=== PATIENT | female | born 1990 | race African-American/Black ===

== ENCOUNTER 2017-01-20 10:33 | Emergency (ER) | payer MEDICAID ==
[~2017-01-20] VITALS: Ht 147.3 cm; Wt 77.2 kg
[~2017-01-20 10:33] MED LIST: AMOXICILLIN500 M1 PO; AMOXICILLIN500 MG PO; LORTAB 5/500 501 TAB PO; NO HOME MEDICATIONS; PRENATAL1 TA1; PRENATAL1 TA1 PO; SPRINTEC 35 MCG1 TAB PO; TYLENOL 325MG325 MG PO
[2017-01-20 10:45] VITALS: BP 140/89; PULSE 75; TEMP 98.8
[2017-01-20 11:27] LABS: PH 7 (5-8); URINE APPEARANCE Hazy; URINE BACTERIA Many /hpf; URINE BILIRUBIN Negative (NEGATIVE); URINE BLOOD Negative (NEGATIVE); URINE COLOR Yellow; URINE GLUCOSE Negative (NEGATIVE); URINE KETONE Negative (NEGATIVE); URINE UROBILINOGEN Negative (NEGATIVE)
== END 2017-01-20 11:46 | disposition home or self-care (01) ==
LOC: COL.ER 10:33
PROVIDERS: Physician Assistant
DX: J02.9 Acute pharyngitis, unspecified (principal); N39.0 Urinary tract infection, site not specified; F17.210 Nicotine dependence, cigarettes, uncomplicated

== ENCOUNTER 2017-04-23 22:53 | Emergency (ER) | payer MEDICAID ==
[~2017-04-23] VITALS: Ht 147.3 cm; Wt 77.0 kg
[2017-04-23 23:00] VITALS: TEMP 98.5
[2017-04-23 23:41] LABS: COLLECTION METHOD CLEAN CATCH
[2017-04-23 23:48] LABS: MUCOUS Present /lpf; PH 6 (5-8); URINE APPEARANCE Cloudy; URINE BACTERIA Many /hpf; URINE BILIRUBIN Negative (NEGATIVE); URINE BLOOD Negative (NEGATIVE); URINE COLOR Yellow; URINE GLUCOSE Negative (NEGATIVE); URINE KETONE Negative (NEGATIVE); URINE LEUKOCYTE ESTERASE 3+ (NEGATIVE); URINE PROTEIN(semi-quant) Negative (NEGATIVE); URINE UROBILINOGEN Negative (NEGATIVE)
[2017-04-23] MEDS ORDERED: AMOXICILLIN 50500 MG PO (23:57)
[2017-04-24 00:41] VITALS: BP 148/75; PULSE 78
[2017-04-24 01:32] LABS: CHLAMYDIA/TRACH by PCR Female NOT DETECTED; NEISSERIA GON by PCR Female NOT DETECTED
== END 2017-04-24 00:41 | disposition home or self-care (01) ==
LOC: COL.ER 22:53
PROVIDERS: Physician Assistant
DX: A59.9 Trichomoniasis, unspecified (principal); K08.89 Other specified disorders of teeth and supporting structures; F17.210 Nicotine dependence, cigarettes, uncomplicated; Z98.818 Other dental procedure status
CPT/HCPCS: J0696

== ENCOUNTER 2017-07-17 09:21 | Emergency (ER) | payer MEDICAID ==
[~2017-07-17] VITALS: Ht 147.3 cm; Wt 77.3 kg
[~2017-07-17 09:21] MED LIST changes: +AMOXICILLIN 50500 MG PO
[2017-07-17 09:38] VITALS: BP 167/99; PULSE 90; TEMP 96.8
== END 2017-07-17 12:45 | disposition left against medical advice (07) ==
LOC: COL.ER 09:21
DX: N89.8 Other specified noninflammatory disorders of vagina (principal)

== ENCOUNTER 2017-07-20 22:10 | Emergency (ER) | payer MEDICAID ==
[~2017-07-20] VITALS: Ht 147.3 cm; Wt 77.7 kg
[2017-07-20 23:13] LABS: COLLECTION METHOD CLEAN CATCH
[2017-07-20 23:22] LABS: MUCOUS Present /lpf; PH 5 (5-8); URINE APPEARANCE Cloudy; URINE BACTERIA Rare /hpf; URINE BILIRUBIN Negative (NEGATIVE); URINE BLOOD Negative (NEGATIVE); URINE COLOR Yellow; URINE GLUCOSE Negative (NEGATIVE); URINE KETONE Negative (NEGATIVE); URINE LEUKOCYTE ESTERASE 3+ (NEGATIVE); URINE NITRATE Negative (NEGATIVE); URINE PROTEIN(semi-quant) Negative (NEGATIVE); URINE UROBILINOGEN Negative (NEGATIVE)
[2017-07-21] MEDS ORDERED: FLAGYL 375375 MG PO (00:23)
[2017-07-21 01:00] VITALS: BP 141/103; PULSE 55
== END 2017-07-21 01:00 | disposition home or self-care (01) ==
LOC: COL.ER 22:10
PROVIDERS: Family Medicine
DX: N76.0 Acute vaginitis (principal)
CPT/HCPCS: J0696

== ENCOUNTER 2018-01-01 12:17 | Emergency (ER) | payer MEDICAID ==
[~2018-01-01] VITALS: Ht 149.9 cm; Wt 75.7 kg
[~2018-01-01 12:17] MED LIST changes: +FLAGYL 375375 MG PO
[2018-01-01 12:32] VITALS: BP 128/78
[2018-01-01 12:43] LABS: COLLECTION METHOD CLEAN CATCH
[2018-01-01 12:57] LABS: MUCOUS Present /lpf; PH 6 (5-8); SQUAMOUS EPITHELIAL 20-50 /hpf; URINE APPEARANCE Turbid; URINE BACTERIA Occasional /hpf; URINE BILIRUBIN Negative (NEGATIVE); URINE BLOOD 1+ (NEGATIVE); URINE COLOR Amber; URINE GLUCOSE Negative (NEGATIVE); URINE KETONE Negative (NEGATIVE); URINE LEUKOCYTE ESTERASE 2+ (NEGATIVE); URINE NITRATE Negative (NEGATIVE); URINE PROTEIN(semi-quant) 2+ (NEGATIVE); URINE RBC >50 /hpf; URINE UROBILINOGEN >=4.0 mg/dL (NEGATIVE)
[2018-01-01 13:32] VITALS: TEMP 99.1
[2018-01-01 13:51] LABS: BASO % 0.2 % (0.0-2.0); EOS % 0.3 % (0-4.0); GRAN # 8.9 (1.4-6.5); GRAN % 79.9 % (42.2-75.2); HEMATOCRIT 42.1 % (37.0-47.0); HEMOGLOBIN 14.1 g/dl (12.5-16.0); LYMPH % 8.9 % (20.0-51.0); MEAN CELL VOLUME 88 fl (80.0-100.0); MEAN CORPUSCULAR HEMOGLOBIN 30 pg (27.0-31.0); MEAN CORPUSCULAR HGB CONC 34 g/dl (33.0-37.0); MEAN PLATELET VOLUME 11.1 fl (7.4-10.4); MONO # 1.2 (0.1-0.6); MONO % 10.3 % (1.7-9.3); PLATELET COUNT 186 K/mm3 (130-400); RED BLOOD COUNT 4.77 M/mm3 (4.10-5.30); REDCELL DISTRIBUTION WIDTH-CV 13.3 % (11.5-14.5)
[2018-01-01 14:02] LABS: ALBUMIN 4.1 gm/dL (3.5-5.0); BILIRUBIN,TOTAL 0.8 mg/dL (0.0-1.0); C-REACTIVE PROTEIN 5.8 mg/dL (0.0-0.9); CREATININE, serum 0.67 mg/dL (0.52-1.25); POTASSIUM 3.3 mmol/L (3.4-5.0); TOTAL PROTEIN 7.4 gm/dL (6.4-8.2)
[2018-01-01] MEDS ORDERED: CEFTIN 250250 MG/TAB PO (15:05)
[2018-01-01 15:21] VITALS: PULSE 86
== END 2018-01-01 15:22 | disposition home or self-care (01) ==
LOC: COL.ER 12:17
PROVIDERS: Emergency Medicine; Physician Assistant
DX: N12 Tubulo-interstitial nephritis, not specified as acute or chronic (principal); F17.210 Nicotine dependence, cigarettes, uncomplicated
CPT/HCPCS: J0696; J1885; J2405; J7030

== ENCOUNTER 2018-01-02 17:45 | Inpatient (IN) | payer MEDICAID ==
[~2018-01-02] VITALS: Ht 149.9 cm; Wt 76.4 kg
[~2018-01-02 17:45] MED LIST changes: +CEFTIN 250250 MG/TAB PO
[2018-01-02 19:14] LABS: COLLECTION METHOD CLEAN CATCH
[2018-01-02 19:18] LABS: BASO % 0.1 % (0.0-2.0); EOS % 0.1 % (0-4.0); GRAN # 9.7 (1.4-6.5); GRAN % 76.9 % (42.2-75.2); HEMATOCRIT 37.3 % (37.0-47.0); HEMOGLOBIN 12.6 g/dl (12.5-16.0); LYMPH # 1.2 (1.2-3.4); LYMPH % 9.4 % (20.0-51.0); MEAN CELL VOLUME 87 fl (80.0-100.0); MEAN CORPUSCULAR HEMOGLOBIN 29 pg (27.0-31.0); MEAN CORPUSCULAR HGB CONC 34 g/dl (33.0-37.0); MEAN PLATELET VOLUME 11.2 fl (7.4-10.4); MONO # 1.7 (0.1-0.6); MONO % 13.1 % (1.7-9.3); PLATELET COUNT 165 K/mm3 (130-400); RED BLOOD COUNT 4.29 M/mm3 (4.10-5.30); REDCELL DISTRIBUTION WIDTH-CV 13.4 % (11.5-14.5)
[2018-01-02 19:28] LABS: ALBUMIN 3.5 gm/dL (3.5-5.0); BILIRUBIN,TOTAL 0.8 mg/dL (0.0-1.0); CALCIUM 8.6 mg/dL (8.4-10.2); CREATININE, serum 0.61 mg/dL (0.52-1.25); POTASSIUM 3.6 mmol/L (3.4-5.0); TOTAL PROTEIN 6.5 gm/dL (6.4-8.2)
[2018-01-02 19:32] LABS: MUCOUS Present /lpf; PH 7 (5-8); SQUAMOUS EPITHELIAL 20-50 /hpf; URINE APPEARANCE Cloudy; URINE BACTERIA Rare /hpf; URINE BILIRUBIN Negative (NEGATIVE); URINE BLOOD Negative (NEGATIVE); URINE COLOR Amber; URINE GLUCOSE Negative (NEGATIVE); URINE KETONE Negative (NEGATIVE); URINE LEUKOCYTE ESTERASE Trace (NEGATIVE); URINE NITRATE Negative (NEGATIVE); URINE PROTEIN(semi-quant) 1+ (NEGATIVE); URINE UROBILINOGEN >=4.0 mg/dL (NEGATIVE)
[2018-01-03] VITALS (7 sets, daily range): BP systolic 110–139; BP diastolic 67–85; PULSE 65–92; TEMP 97.9–99.3
[2018-01-03 09:09] LABS: HEMOGLOBIN 10.8 g/dl (12.5-16.0); MEAN CELL VOLUME 90 fl (80.0-100.0); MEAN CORPUSCULAR HEMOGLOBIN 30 pg (27.0-31.0); MEAN CORPUSCULAR HGB CONC 33 g/dl (33.0-37.0); MEAN PLATELET VOLUME 11.9 fl (7.4-10.4); PLATELET COUNT 164 K/mm3 (130-400); RED BLOOD COUNT 3.63 M/mm3 (4.10-5.30); REDCELL DISTRIBUTION WIDTH-CV 13.5 % (11.5-14.5)
[2018-01-03 09:15] LABS: CALCIUM 7.8 mg/dL (8.4-10.2); CREATININE, serum 0.49 mg/dL (0.52-1.25); POTASSIUM 3.6 mmol/L (3.4-5.0)
[2018-01-03 09:16] LABS: HEMATOCRIT 32.6 % (37.0-47.0)
[2018-01-03 09:50] LABS: BAND 25 % (0-10); LYMPHOCYTE 14 % (20.0-51.0); NEUTROPHILS 45 % (42.0-75.2)
[2018-01-03 09:53] LABS: PLATELET ESTIMATE NORMAL (NORMAL)
[2018-01-03 09:54] LABS: HYPOCHROMIA 1+
[2018-01-04 04:01] VITALS: BP 137/86; PULSE 69; TEMP 98.3
[2018-01-04 06:56] LABS: BASO % 0.3 % (0.0-2.0); EOS # 0.1 (0.0-0.7); EOS % 1.4 % (0-4.0); GRAN # 4.6 (1.4-6.5); HEMOGLOBIN 10.8 g/dl (12.5-16.0); LYMPH # 1.9 (1.2-3.4); LYMPH % 24.5 % (20.0-51.0); MEAN CELL VOLUME 87 fl (80.0-100.0); MEAN CORPUSCULAR HEMOGLOBIN 29 pg (27.0-31.0); MEAN CORPUSCULAR HGB CONC 34 g/dl (33.0-37.0); MEAN PLATELET VOLUME 11.9 fl (7.4-10.4); MONO % 12.5 % (1.7-9.3); PLATELET COUNT 163 K/mm3 (130-400); RED BLOOD COUNT 3.68 M/mm3 (4.10-5.30); REDCELL DISTRIBUTION WIDTH-CV 13.2 % (11.5-14.5)
[2018-01-04 07:14] LABS: CREATININE, serum 0.45 mg/dL (0.52-1.25)
[2018-01-04 07:29] LABS: POTASSIUM 3.3 mmol/L (3.4-5.0)
[2018-01-04] MEDS ORDERED: LEVAQUIN 750MG750 M1 PO (08:07)
[2018-01-04 08:55] VITALS: BP 119/67; PULSE 76; TEMP 97.9
== END 2018-01-04 10:15 | disposition home or self-care (01) | DRG 690 ==
LOC: COL.ER 17:45 → MEDICAL 21:44
PROVIDERS: Hospitalist; Nurse Practitioner; Nurse Practitioner Primary Care
DX: N10 Acute pyelonephritis (principal); Z87.891 Personal history of nicotine dependence
CPT/HCPCS: 99238; G0378; J1650; J1885; J1956; J2270; J7030; Q9967

== ENCOUNTER 2018-03-16 13:06 | Emergency (ER) | payer MEDICAID ==
[~2018-03-16] VITALS: Ht 147.3 cm; Wt 76.4 kg
[~2018-03-16 13:06] MED LIST changes: +LEVAQUIN 750MG750 M1 PO
[2018-03-16 13:13] VITALS: BP 139/94; TEMP 98.4
[2018-03-16 13:26] LABS: COLLECTION METHOD CLEAN CATCH
[2018-03-16 13:38] LABS: MUCOUS Present /lpf; PH 7 (5-8); URINE APPEARANCE Hazy; URINE BACTERIA Rare /hpf; URINE BILIRUBIN Negative (NEGATIVE); URINE BLOOD 3+ (NEGATIVE); URINE COLOR Yellow; URINE GLUCOSE Negative (NEGATIVE); URINE KETONE Negative (NEGATIVE); URINE LEUKOCYTE ESTERASE 2+ (NEGATIVE); URINE NITRATE Negative (NEGATIVE); URINE PROTEIN(semi-quant) Negative (NEGATIVE); URINE RBC >50 /hpf; URINE UROBILINOGEN Negative (NEGATIVE)
[2018-03-16] MEDS ORDERED: MACROBID 1100 MG/CAP PO (15:01)
[2018-03-16 15:49] VITALS: PULSE 79
== END 2018-03-16 15:49 | disposition home or self-care (01) ==
LOC: COL.ER 13:06
PROVIDERS: Emergency Medicine
DX: N39.0 Urinary tract infection, site not specified (principal); F17.210 Nicotine dependence, cigarettes, uncomplicated; Z90.49 Acquired absence of other specified parts of digestive tract

== ENCOUNTER 2018-04-12 04:17 | Emergency (ER) | payer MEDICAID ==
[~2018-04-12] VITALS: Ht 147.3 cm; Wt 81.8 kg
[~2018-04-12 04:17] MED LIST changes: +MACROBID 1100 MG/CAP PO
[2018-04-12 04:23] VITALS: TEMP 98.8
[2018-04-12 05:21] LABS: COLLECTION METHOD CLEAN CATCH
[2018-04-12 05:35] LABS: MUCOUS Present /lpf; PH 6 (5-8); SQUAMOUS EPITHELIAL 20-50 /hpf; URINE APPEARANCE Hazy; URINE BACTERIA None Seen /hpf; URINE BILIRUBIN Negative (NEGATIVE); URINE BLOOD 3+ (NEGATIVE); URINE COLOR Red; URINE GLUCOSE Negative (NEGATIVE); URINE KETONE Negative (NEGATIVE); URINE LEUKOCYTE ESTERASE Trace (NEGATIVE); URINE NITRATE Negative (NEGATIVE); URINE PROTEIN(semi-quant) 2+ (NEGATIVE); URINE RBC >50 /hpf; URINE UROBILINOGEN Negative (NEGATIVE)
[2018-04-12 06:19] LABS: BASO % 0.1 % (0.0-2.0); EOS # 0.1 (0.0-0.7); EOS % 1.1 % (0-4.0); GRAN # 7.1 (1.4-6.5); GRAN % 76.2 % (42.2-75.2); HEMATOCRIT 36.2 % (37.0-47.0); HEMOGLOBIN 12.4 g/dl (12.5-16.0); LYMPH # 1.2 (1.2-3.4); LYMPH % 12.8 % (20.0-51.0); MEAN CELL VOLUME 87 fl (80.0-100.0); MEAN CORPUSCULAR HEMOGLOBIN 30 pg (27.0-31.0); MEAN CORPUSCULAR HGB CONC 34 g/dl (33.0-37.0); MEAN PLATELET VOLUME 10.1 fl (7.4-10.4); MONO # 0.9 (0.1-0.6); MONO % 9.5 % (1.7-9.3); PLATELET COUNT 258 K/mm3 (130-400); RED BLOOD COUNT 4.17 M/mm3 (4.10-5.30); REDCELL DISTRIBUTION WIDTH-CV 13.2 % (11.5-14.5)
[2018-04-12 06:39] LABS: ALBUMIN 3.6 gm/dL (3.5-5.0); BILIRUBIN,TOTAL 0.2 mg/dL (0.0-1.0); C-REACTIVE PROTEIN 1.3 mg/dL (0.0-0.9); CALCIUM 8.7 mg/dL (8.4-10.2); CREATININE, serum 0.66 mg/dL (0.52-1.25); POTASSIUM 3.5 mmol/L (3.4-5.0); TOTAL PROTEIN 6.8 gm/dL (6.4-8.2)
[2018-04-12] MEDS ORDERED: OMNICEF 300MG300 MG PO (08:08)
[2018-04-12 08:57] VITALS: BP 118/80; PULSE 88
== END 2018-04-12 08:59 | disposition home or self-care (01) ==
LOC: COL.ER 04:17
PROVIDERS: Family Medicine
DX: N12 Tubulo-interstitial nephritis, not specified as acute or chronic (principal)
CPT/HCPCS: J0696; J1885; J7030; Q9967

== ENCOUNTER 2018-06-21 21:21 | Emergency (ER) | payer MEDICAID ==
[~2018-06-21] VITALS: Ht 149.9 cm; Wt 79.5 kg
[~2018-06-21 21:21] MED LIST changes: +OMNICEF 300MG300 MG PO
[2018-06-21 21:34] VITALS: TEMP 97.8
[2018-06-21 21:58] LABS: COLLECTION METHOD CLEAN CATCH
[2018-06-21 22:12] LABS: MUCOUS Present /lpf; PH 7 (5-8); URINE APPEARANCE Hazy; URINE BACTERIA None Seen /hpf; URINE BILIRUBIN Negative (NEGATIVE); URINE BLOOD Negative (NEGATIVE); URINE COLOR Yellow; URINE GLUCOSE Negative (NEGATIVE); URINE KETONE Negative (NEGATIVE); URINE LEUKOCYTE ESTERASE 1+ (NEGATIVE); URINE NITRATE Negative (NEGATIVE); URINE PROTEIN(semi-quant) 1+ (NEGATIVE)
[2018-06-21] MEDS ORDERED: AMOXICILLIN 8751 TAB PO (22:24)
[2018-06-21] MEDS ORDERED: DIFLUCAN150 MG PO (22:24)
[2018-06-21] MEDS ORDERED: NORCO 325 MG-51 TAB PO (22:24)
[2018-06-21 23:10] VITALS: BP 132/95; PULSE 79
== END 2018-06-21 23:11 | disposition home or self-care (01) ==
LOC: COL.ER 21:21
PROVIDERS: Physician Assistant
DX: K02.9 Dental caries, unspecified (principal); N39.0 Urinary tract infection, site not specified; I10 Essential (primary) hypertension; F17.210 Nicotine dependence, cigarettes, uncomplicated

== ENCOUNTER 2018-08-10 21:15 | Emergency (ER) | payer MEDICAID ==
[~2018-08-10] VITALS: Ht 149.9 cm; Wt 77.3 kg
[~2018-08-10 21:15] MED LIST changes: +AMOXICILLIN 8751 TAB PO; +DIFLUCAN150 MG PO; +NORCO 325 MG-51 TAB PO
[2018-08-10 21:21] VITALS: TEMP 98.5
[2018-08-10 22:51] VITALS: BP 147/91; PULSE 98
== END 2018-08-10 22:50 | disposition home or self-care (01) ==
LOC: COL.ER 21:15
DX: S96.912A Strain of unspecified muscle and tendon at ankle and foot level, left foot, initial encounter (principal); F17.210 Nicotine dependence, cigarettes, uncomplicated; W06.XXXA Fall from bed, initial encounter; Y92.009 Unspecified place in unspecified non-institutional (private) residence as the place of occurrence of the external cause

== ENCOUNTER 2018-10-06 01:36 | Emergency (ER) | payer MEDICAID ==
[~2018-10-06] VITALS: Ht 149.9 cm; Wt 70.5 kg
[2018-10-06 01:48] LABS: COLLECTION METHOD CLEAN CATCH
[2018-10-06 01:51] VITALS: BP 129/96; TEMP 97.9
[2018-10-06 01:53] LABS: MUCOUS Present /lpf; PH 6 (5-8); URINE APPEARANCE Clear; URINE BACTERIA None Seen /hpf; URINE BILIRUBIN Negative (NEGATIVE); URINE BLOOD Negative (NEGATIVE); URINE COLOR Straw; URINE GLUCOSE Negative (NEGATIVE); URINE KETONE Negative (NEGATIVE); URINE LEUKOCYTE ESTERASE Trace (NEGATIVE); URINE NITRATE Negative (NEGATIVE); URINE PROTEIN(semi-quant) Negative (NEGATIVE); URINE RBC 0-2 /hpf; URINE UROBILINOGEN Negative (NEGATIVE)
[2018-10-06] MEDS ORDERED: CIPRO 500MG TA500 MG PO (03:14)
[2018-10-06 03:22] VITALS: PULSE 73
== END 2018-10-06 03:22 | disposition home or self-care (01) ==
LOC: COL.ER 01:36
PROVIDERS: Emergency Medicine
DX: N39.0 Urinary tract infection, site not specified (principal); Z90.49 Acquired absence of other specified parts of digestive tract; Z98.51 Tubal ligation status

== ENCOUNTER 2019-03-20 22:40 | Emergency (ER) | payer MEDICAID ==
[~2019-03-20] VITALS: Ht 149.9 cm; Wt 67.3 kg
[~2019-03-20 22:40] MED LIST changes: +CIPRO 500MG TA500 MG PO
[2019-03-20 23:02] VITALS: BP 159/108; PULSE 85; TEMP 98.3
[2019-03-20 23:25] LABS: COLLECTION METHOD CLEAN CATCH
[2019-03-20 23:33] LABS: AMORPHOUS CRYSTAL Present /uL; MUCOUS Present /lpf; PH 7 (5-8); URINE APPEARANCE Cloudy; URINE BACTERIA Rare /hpf; URINE BILIRUBIN Negative (NEGATIVE); URINE BLOOD Negative (NEGATIVE); URINE COLOR Yellow; URINE GLUCOSE Negative (NEGATIVE); URINE KETONE Negative (NEGATIVE); URINE LEUKOCYTE ESTERASE 1+ (NEGATIVE); URINE NITRATE Negative (NEGATIVE); URINE PROTEIN(semi-quant) Negative (NEGATIVE); URINE UROBILINOGEN Negative (NEGATIVE)
[2019-03-21] MEDS ORDERED: CEFTIN500 MG PO (02:03)
== END 2019-03-21 02:21 | disposition home or self-care (01) ==
LOC: COL.ER 22:40
PROVIDERS: Nurse Practitioner
DX: N39.0 Urinary tract infection, site not specified (principal)

== ENCOUNTER 2019-05-18 07:59 | Emergency (ER) | payer MEDICAID ==
[~2019-05-18] VITALS: Ht 149.9 cm; Wt 70.5 kg
[~2019-05-18 07:59] MED LIST changes: +CEFTIN500 MG PO
[2019-05-18 08:31] VITALS: TEMP 97.6
[2019-05-18 09:31] LABS: COLLECTION METHOD CLEAN CATCH
[2019-05-18 09:38] LABS: MUCOUS Present /lpf; PH 6 (5-8); URINE APPEARANCE Hazy; URINE BACTERIA Rare /hpf; URINE BILIRUBIN Positive (NEGATIVE); URINE BLOOD Negative (NEGATIVE); URINE COLOR Yellow; URINE GLUCOSE Negative (NEGATIVE); URINE KETONE Negative (NEGATIVE); URINE LEUKOCYTE ESTERASE Negative (NEGATIVE); URINE NITRATE Negative (NEGATIVE); URINE PROTEIN(semi-quant) 1+ (NEGATIVE); URINE RBC 0-2 /hpf; URINE UROBILINOGEN >=4.0 mg/dL (NEGATIVE)
[2019-05-18 10:28] LABS: BASO % 0.3 % (0.0-2.0); EOS % 0.4 % (0-4.0); GRAN # 5.9 (1.4-6.5); GRAN % 65.1 % (42.2-75.2); HEMATOCRIT 39.8 % (37.0-47.0); HEMOGLOBIN 13.5 g/dl (12.5-16.0); LYMPH # 2.2 (1.2-3.4); MEAN CELL VOLUME 88 fl (80.0-100.0); MEAN CORPUSCULAR HEMOGLOBIN 30 pg (27.0-31.0); MEAN CORPUSCULAR HGB CONC 34 g/dl (33.0-37.0); MEAN PLATELET VOLUME 11.1 fl (7.4-10.4); MONO # 0.9 (0.1-0.6); PLATELET COUNT 198 K/mm3 (130-400); RED BLOOD COUNT 4.52 M/mm3 (4.10-5.30); REDCELL DISTRIBUTION WIDTH-CV 13.2 % (11.5-14.5)
[2019-05-18 10:49] LABS: ALANINE AMINOTRANSFERASE 9 U/L (9-52); ALBUMIN 4.2 gm/dL (3.5-5.0); ALKALINE PHOSPHATASE 51 U/L (50-136); ANION GAP 9 mmol/L (7-16); AST,SGOT 14 U/L (15-37); BILIRUBIN,TOTAL 0.4 mg/dL (0.0-1.0); BLOOD UREA NITROGEN 13 mg/dL (7-17); CALCIUM 9.2 mg/dL (8.4-10.2); CARBON DIOXIDE 25 mmol/L (22-30); CHLORIDE 107 mmol/L (98-107); CREATININE, serum 0.67 (0.52-1.25); GLUCOSE 80 mg/dL (74-106); LIPASE 110 U/L (23-300); POTASSIUM 3.8 mmol/L (3.4-5.0); SODIUM 141 mmol/L (137-145); TOTAL PROTEIN 7.1 gm/dL (6.4-8.2)
[2019-05-18 10:52] LABS: C-REACTIVE PROTEIN < 0.5 mg/dL (0.0-0.9)
[2019-05-18] MEDS ORDERED: CEFTIN500 MG PO (11:30)
[2019-05-18] MEDS ORDERED: DIFLUCAN150 MG PO (11:30)
[2019-05-18] MEDS ORDERED: FLAGYL500 MG PO (12:12)
[2019-05-18 12:24] VITALS: BP 129/93; PULSE 72
== END 2019-05-18 12:24 | disposition home or self-care (01) ==
LOC: COL.ER 07:59
PROVIDERS: Emergency Medicine
DX: N76.0 Acute vaginitis (principal); B96.89 Other specified bacterial agents as the cause of diseases classified elsewhere; Z90.89 Acquired absence of other organs
CPT/HCPCS: J1885; J7030

== ENCOUNTER 2019-05-20 10:40 | Emergency (ER) | payer MEDICAID ==
[~2019-05-20] VITALS: Ht 149.9 cm; Wt 70.5 kg
[~2019-05-20 10:40] MED LIST changes: +FLAGYL500 MG PO
[2019-05-20 11:25] VITALS: BP 125/75; TEMP 98.3
[2019-05-20] MEDS ORDERED: AMOXICILLIN 50500 MG PO (12:48)
[2019-05-20] MEDS ORDERED: NORCO 325 MG-51 TAB PO (12:48)
[2019-05-20 13:53] VITALS: PULSE 72
== END 2019-05-20 13:53 | disposition home or self-care (01) ==
LOC: COL.ER 10:40
DX: K02.9 Dental caries, unspecified (principal); K04.7 Periapical abscess without sinus
CPT/HCPCS: J1885

== ENCOUNTER 2020-05-29 19:16 | Emergency (ER) | payer MEDICAID ==
[~2020-05-29] VITALS: Ht 149.9 cm; Wt 68.2 kg
[2020-05-29 19:33] VITALS: TEMP 98.5
[2020-05-29 20:00] LABS: COLLECTION METHOD CLEAN CATCH
[2020-05-29 20:13] LABS: MUCOUS Present /lpf; PH 7 (5-8); URINE APPEARANCE Hazy; URINE BACTERIA None Seen /hpf; URINE BILIRUBIN Negative (NEGATIVE); URINE BLOOD 3+ (NEGATIVE); URINE COLOR Yellow; URINE GLUCOSE Negative (NEGATIVE); URINE KETONE Negative (NEGATIVE); URINE LEUKOCYTE ESTERASE Negative (NEGATIVE); URINE NITRATE Negative (NEGATIVE); URINE PROTEIN(semi-quant) 1+ (NEGATIVE); URINE RBC >50 /hpf; URINE UROBILINOGEN Negative (NEGATIVE)
[2020-05-29] MEDS ORDERED: FLOMAX 0.40.4 MG/CAP PO (22:12)
[2020-05-29] MEDS ORDERED: CEPHALEXIN500 M1 PO (22:12)
[2020-05-29 22:31] VITALS: BP 128/86; PULSE 87
== END 2020-05-29 22:31 | disposition home or self-care (01) ==
LOC: COL.ER 19:16
PROVIDERS: Nurse Practitioner
DX: R10.9 Unspecified abdominal pain (principal); R31.9 Hematuria, unspecified; Z32.02 Encounter for pregnancy test, result negative; Z79.2 Long term (current) use of antibiotics
CPT/HCPCS: J0696

== ENCOUNTER 2020-06-11 01:34 | Emergency (ER) | payer MEDICAID ==
[~2020-06-11] VITALS: Ht 149.9 cm; Wt 68.2 kg
[~2020-06-11 01:34] MED LIST changes: +CEPHALEXIN500 M1 PO; +FLOMAX 0.40.4 MG/CAP PO
[2020-06-11 01:38] VITALS: BP 138/100; TEMP 98.2
[2020-06-11 02:12] LABS: COLLECTION METHOD CLEAN CATCH
[2020-06-11 02:18] LABS: BASO % 0.2 % (0.0-2.0); EOS # 0.1 (0.0-0.7); EOS % 0.4 % (0-4.0); GRAN # 9.1 (1.4-6.5); GRAN % 70.9 % (42.2-75.2); HEMATOCRIT 40.7 % (37.0-47.0); HEMOGLOBIN 13.9 g/dl (12.5-16.0); LYMPH # 2.7 (1.2-3.4); LYMPH % 20.6 % (20.0-51.0); MEAN CELL VOLUME 87 fl (80.0-100.0); MEAN CORPUSCULAR HEMOGLOBIN 30 pg (27.0-31.0); MEAN CORPUSCULAR HGB CONC 34 g/dl (33.0-37.0); MEAN PLATELET VOLUME 10.9 fl (7.4-10.4); MONO % 7.5 % (1.7-9.3); PLATELET COUNT 252 K/mm3 (130-400); RED BLOOD COUNT 4.66 M/mm3 (4.10-5.30); REDCELL DISTRIBUTION WIDTH-CV 13.2 % (11.5-14.5)
[2020-06-11 02:21] LABS: PH 7 (5-8); SQUAMOUS EPITHELIAL 0-2 /hpf; URINE APPEARANCE Clear; URINE BACTERIA Rare /hpf; URINE BILIRUBIN Negative (NEGATIVE); URINE BLOOD 3+ (NEGATIVE); URINE COLOR Straw; URINE GLUCOSE Negative (NEGATIVE); URINE KETONE Negative (NEGATIVE); URINE LEUKOCYTE ESTERASE Negative (NEGATIVE); URINE NITRATE Negative (NEGATIVE); URINE PROTEIN(semi-quant) Negative (NEGATIVE); URINE RBC 0-2 /hpf; URINE UROBILINOGEN Negative (NEGATIVE); URINE WBC 0-2 /hpf
[2020-06-11 02:29] LABS: CALCIUM 9.5 mg/dL (8.4-10.2); CREATININE, serum 0.71 (0.52-1.25); POTASSIUM 3.8 mmol/L (3.4-5.0)
[2020-06-11] MEDS ORDERED: NORCO 325 MG-51 TAB PO (03:47)
[2020-06-11] MEDS ORDERED: FLOMAX 0.40.4 MG/CAP PO (03:47)
[2020-06-11] MEDS ORDERED: BACTROBAN15 GM TOP (03:47)
[2020-06-11] MEDS ORDERED: ZOFRAN ODT4 MG PO (03:47)
[2020-06-11 04:00] VITALS: PULSE 85
== END 2020-06-11 04:00 | disposition home or self-care (01) ==
LOC: COL.ER 01:34
PROVIDERS: Emergency Medicine
DX: N20.1 Calculus of ureter (principal); Z88.1 Allergy status to other antibiotic agents
CPT/HCPCS: J1885

== ENCOUNTER 2021-01-25 21:01 | Emergency (ER) | payer MEDICAID ==
[~2021-01-25] VITALS: Ht 149.9 cm; Wt 68.2 kg
[~2021-01-25 21:01] MED LIST changes: +BACTROBAN15 GM TOP; +ZOFRAN ODT4 MG PO
[2021-01-25 21:09] VITALS: TEMP 98.1
[2021-01-25 22:20] VITALS: BP 133/90; PULSE 85
== END 2021-01-25 22:20 | disposition home or self-care (01) ==
LOC: COL.ER 21:01
DX: U07.1 COVID-19 (principal); F17.210 Nicotine dependence, cigarettes, uncomplicated

== ENCOUNTER 2021-01-29 12:16 | Emergency (ER) | payer MEDICAID ==
[~2021-01-29] VITALS: Ht 149.9 cm; Wt 68.2 kg
[2021-01-29 12:49] VITALS: TEMP 98.3
[2021-01-29 13:13] LABS: BASO % 0.3 % (0.0-2.0); EOS % 0.3 % (0-4.0); GRAN # 4.2 (1.4-6.5); GRAN % 58.8 % (42.2-75.2); HEMATOCRIT 39.3 % (37.0-47.0); HEMOGLOBIN 13.9 g/dl (12.5-16.0); LYMPH # 2.1 (1.2-3.4); LYMPH % 29.1 % (20.0-51.0); MEAN CELL VOLUME 84 fl (80.0-100.0); MEAN CORPUSCULAR HEMOGLOBIN 30 pg (27.0-31.0); MEAN CORPUSCULAR HGB CONC 35 g/dl (33.0-37.0); MEAN PLATELET VOLUME 10.4 fl (7.4-10.4); MONO # 0.8 (0.1-0.6); MONO % 11.2 % (1.7-9.3); PLATELET COUNT 211 K/mm3 (130-400); RED BLOOD COUNT 4.67 M/mm3 (4.10-5.30)
[2021-01-29 13:25] LABS: ALANINE AMINOTRANSFERASE 19 U/L (4-34); ALBUMIN 4.6 gm/dL (3.5-5.0); ALKALINE PHOSPHATASE 56 U/L (50-136); ANION GAP 8 mmol/L (7-16); AST,SGOT 23 U/L (15-37); BILIRUBIN,TOTAL 0.5 mg/dL (0.0-1.0); BLOOD UREA NITROGEN 12 mg/dL (7-17); C-REACTIVE PROTEIN < 0.5 mg/dL (0.0-0.9); CALCIUM 9.1 mg/dL (8.4-10.2); CARBON DIOXIDE 25 mmol/L (22-30); CHLORIDE 109 mmol/L (98-107); CREATININE, serum 0.66 (0.52-1.25); GLUCOSE 93 mg/dL (74-106); POTASSIUM 3.7 mmol/L (3.4-5.0); SODIUM 141 mmol/L (137-145); TOTAL PROTEIN 7.6 gm/dL (6.4-8.2)
[2021-01-29 13:26] LABS: COLLECTION METHOD CLEAN CATCH
[2021-01-29 13:59] LABS: PH 7 (5-8); SQUAMOUS EPITHELIAL 0-2 /hpf; URINE APPEARANCE Clear; URINE BACTERIA None Seen /hpf; URINE BILIRUBIN Negative (NEGATIVE); URINE BLOOD 3+ (NEGATIVE); URINE COLOR Straw; URINE GLUCOSE Negative (NEGATIVE); URINE KETONE Negative (NEGATIVE); URINE LEUKOCYTE ESTERASE Negative (NEGATIVE); URINE NITRATE Negative (NEGATIVE); URINE PROTEIN(semi-quant) Negative (NEGATIVE); URINE UROBILINOGEN Negative (NEGATIVE)
[2021-01-29 15:25] VITALS: BP 119/91; PULSE 80
== END 2021-01-29 15:25 | disposition home or self-care (01) ==
LOC: COL.ER 12:16
PROVIDERS: Physician Assistant
DX: U07.1 COVID-19 (principal); N20.0 Calculus of kidney; F17.210 Nicotine dependence, cigarettes, uncomplicated; Z90.49 Acquired absence of other specified parts of digestive tract; Z32.02 Encounter for pregnancy test, result negative
CPT/HCPCS: J1885; J3010; J7030

== ENCOUNTER 2021-02-17 21:50 | Emergency (ER) | payer MEDICAID ==
[~2021-02-17] VITALS: Ht 149.9 cm; Wt 68.2 kg
[2021-02-17 22:08] VITALS: TEMP 98.4
[2021-02-17] MEDS ORDERED: NORCO 325 MG-51 TAB PO (22:11)
[2021-02-17] MEDS ORDERED: AMOXICILLIN 50500 MG PO (22:11)
[2021-02-17 22:26] VITALS: BP 115/85; PULSE 87
== END 2021-02-17 22:15 | disposition home or self-care (01) ==
LOC: COL.ER 21:50
DX: K08.89 Other specified disorders of teeth and supporting structures (principal)
CPT/HCPCS: J1885

== ENCOUNTER 2021-12-29 02:51 | Emergency (ER) | payer MEDICAID ==
[~2021-12-29] VITALS: Ht 149.9 cm; Wt 68.2 kg
[2021-12-29 02:57] VITALS: TEMP 98.2
[2021-12-29 03:35] VITALS: PULSE 96
== END 2021-12-29 03:38 | disposition home or self-care (01) ==
LOC: COL.ER 02:51
DX: U07.1 COVID-19 (principal); Z28.310 Unvaccinated for COVID-19

== ENCOUNTER 2022-03-19 17:22 | Emergency (ER) | payer MEDICAID ==
[~2022-03-19] VITALS: Ht 149.9 cm; Wt 68.2 kg
[2022-03-19 18:09] VITALS: BP 153/93; PULSE 71; TEMP 98.4
[2022-03-19] MEDS ORDERED: AMOXICILLIN 8751 TAB PO (18:59)
== END 2022-03-19 19:07 | disposition home or self-care (01) ==
LOC: COL.ER 17:22
DX: S61.451A Open bite of right hand, initial encounter (principal); F17.200 Nicotine dependence, unspecified, uncomplicated; Z88.1 Allergy status to other antibiotic agents; Z28.310 Unvaccinated for COVID-19; W55.01XA Bitten by cat, initial encounter

== ENCOUNTER 2023-04-24 16:27 | Emergency (ER) | payer SELFPAY ==
[~2023-04-24] VITALS: Ht 149.9 cm; Wt 75.0 kg
[2023-04-24 16:45] VITALS: BP 167/108; TEMP 98.6
[2023-04-24 17:27] LABS: COLLECTION METHOD CLEAN CATCH
[2023-04-24 17:39] LABS: URINE APPEARANCE Cloudy (CLEAR/HAZY); URINE COLOR Red (YELLOW)
[2023-04-24 17:40] LABS: BASO % 0.3 % (0.0-2.0); EOS # 0.2 K/mm3 (0.0-0.7); EOS % 1.4 % (0.0-4.0); GRAN # 7.1 K/mm3 (1.4-6.5); GRAN % 66.1 % (42.2-75.2); HEMATOCRIT 39.9 % (37.0-47.0); HEMOGLOBIN 12.9 g/dl (12.5-16.0); LYMPH # 2.3 K/mm3 (1.2-3.4); LYMPH % 21.2 % (20.0-51.0); MEAN CELL VOLUME 90 fl (80.0-100.0); MEAN CORPUSCULAR HEMOGLOBIN 29 pg (27-31); MEAN CORPUSCULAR HGB CONC 32 g/dl (33.0-37.0); MEAN PLATELET VOLUME 11.2 fl (7.4-10.4); MONO # 1.2 K/mm3 (0.1-0.6); MONO % 10.9 % (1.7-9.3); PLATELET COUNT 219 K/mm3 (130-400); RED BLOOD COUNT 4.42 M/mm3 (4.10-5.30); REDCELL DISTRIBUTION WIDTH-CV 13.5 % (11.5-14.5)
[2023-04-24 17:40] LABS: PH 7.5 (5.0-8.5); SQUAMOUS EPITHELIAL 0-2 /hpf (0-10); URINE BACTERIA None Seen /hpf (NONE SEEN); URINE BLOOD 3+ (NEGATIVE); URINE GLUCOSE Negative (NEGATIVE); URINE KETONE Negative (NEGATIVE); URINE NITRATE Negative (NEGATIVE); URINE PROTEIN(semi-quant) 1+ (NEGATIVE); URINE RBC >50 /hpf (0-2); URINE UROBILINOGEN 0.2 E.U/dL (0.2-1.0)
[2023-04-24 17:58] LABS: ALBUMIN 3.7 gm/dL (3.5-5.0); BILIRUBIN,TOTAL 0.3 mg/dL (0.2-1.2); C-REACTIVE PROTEIN 2.03 mg/dL (0.00-0.50); CALCIUM 9.1 mg/dL (8.4-10.2); CREATININE, serum 0.83 mg/dL (0.57-1.11); POTASSIUM 4.3 mmol/L (3.5-4.5)
[2023-04-24] MEDS ORDERED: FLOMAX 0.40.4 MG/CAP PO (18:13)
[2023-04-24] MEDS ORDERED: NORCO 325 MG-51 TAB PO (18:15)
[2023-04-24 18:58] VITALS: PULSE 68
== END 2023-04-24 18:58 | disposition home or self-care (01) ==
LOC: COL.ER 16:27
PROVIDERS: Nurse Practitioner
DX: R10.32 Left lower quadrant pain (principal); N39.0 Urinary tract infection, site not specified; Z96.0 Presence of urogenital implants; Z87.442 Personal history of urinary calculi; Z79.2 Long term (current) use of antibiotics
CPT/HCPCS: J1885; J2270; J2405; J7030

== ENCOUNTER 2023-12-05 07:31 | Emergency (ER) | payer SELFPAY ==
[~2023-12-05] VITALS: Ht 149.9 cm; Wt 86.4 kg
[2023-12-05 07:43] VITALS: TEMP 97.6
[2023-12-05] MEDS ORDERED: Morphine 4 MG/ML VIAL IV PRN (08:15)
[2023-12-05] MEDS ORDERED: NS 1,000 ML IV ONE (08:15)
[2023-12-05 08:22] LABS: COLLECTION METHOD CLEAN CATCH
[2023-12-05 08:25] LABS: BASO # 0.1 K/mm3 (0.0-0.2); BASO % 0.3 % (0.0-2.0); EOS # 0.1 K/mm3 (0.0-0.7); EOS % 0.8 % (0.0-4.0); GRAN # 9.6 K/mm3 (1.4-6.5); GRAN % 66.8 % (42.2-75.2); HEMATOCRIT 41.4 % (37.0-47.0); HEMOGLOBIN 13.9 g/dl (12.5-16.0); LYMPH # 3.2 K/mm3 (1.2-3.4); LYMPH % 22.2 % (20.0-51.0); MEAN CELL VOLUME 85 fl (80.0-100.0); MEAN CORPUSCULAR HEMOGLOBIN 29 pg (27-31); MEAN CORPUSCULAR HGB CONC 34 g/dl (33.0-37.0); MEAN PLATELET VOLUME 10.5 fl (7.4-10.4); MONO # 1.3 K/mm3 (0.1-0.6); MONO % 9.2 % (1.7-9.3); PLATELET COUNT 233 K/mm3 (130-400); RED BLOOD COUNT 4.86 M/mm3 (4.10-5.30); REDCELL DISTRIBUTION WIDTH-CV 13.2 % (11.5-14.5)
[2023-12-05] MEDS ORDERED: Ondansetron 4 MG/2 ML VIAL IV PRN (08:30)
[2023-12-05 08:34] LABS: PH 6.5 (5.0-8.5); URINE APPEARANCE CLEAR (CLEAR/HAZY); URINE BLOOD 2+ (NEGATIVE); URINE COLOR YELLOW (YELLOW); URINE GLUCOSE NEGATIVE (NEGATIVE); URINE KETONE NEGATIVE (NEGATIVE); URINE NITRATE NEGATIVE (NEGATIVE); URINE PROTEIN(semi-quant) NEGATIVE (NEGATIVE); URINE UROBILINOGEN 0.2 E.U/dL (0.2-1.0)
[2023-12-05 08:42] LABS: ALBUMIN 3.8 g/dL (3.5-5.0); BILIRUBIN,TOTAL 0.3 mg/dL (0.2-1.2); CALCIUM 9.9 mg/dL (8.4-10.2); CREATININE, serum 0.7 mg/dL (0.57-1.11); POTASSIUM 3.8 mEq/L (3.5-4.5); TOTAL PROTEIN 6.6 g/dl (6.2-8.1)
[2023-12-05] MEDS ORDERED: Iohexol 300 - 100 ML VIAL IV ONE (09:32)
[2023-12-05] MEDS ORDERED: NS 100 ML IV SCH (09:32)
[2023-12-05] MEDS ORDERED: PERCOCET 325 MG1 TA2 PO (10:23)
[2023-12-05] MEDS ORDERED: FLOMAX 0.40.4 MG/CAP PO (10:23)
[2023-12-05] MEDS ORDERED: ZOFRAN ODT4 MG PO (10:23)
[2023-12-05 10:32] VITALS: BP 176/80; PULSE 78
== END 2023-12-05 10:33 | disposition home or self-care (01) ==
LOC: COL.ER 07:31
PROVIDERS: Personal Emergency Response Attendant
DX: N13.2 Hydronephrosis with renal and ureteral calculous obstruction (principal)
CPT/HCPCS: J2270; J2405; J7030; Q9967

== ENCOUNTER 2023-12-08 01:29 | Emergency (ER) | payer SELFPAY ==
[~2023-12-08] VITALS: Ht 149.9 cm; Wt 86.4 kg
[~2023-12-08 01:29] MED LIST changes: +PERCOCET 325 MG1 TA2 PO
[2023-12-08 01:33] VITALS: TEMP 97.5
[2023-12-08 01:51] LABS: COLLECTION METHOD CLEAN CATCH
[2023-12-08 01:54] LABS: BASO % 0.1 % (0.0-2.0); EOS # 0.1 K/mm3 (0.0-0.7); GRAN # 10.2 K/mm3 (1.4-6.5); GRAN % 72.7 % (42.2-75.2); HEMATOCRIT 41.9 % (37.0-47.0); HEMOGLOBIN 13.9 g/dl (12.5-16.0); LYMPH # 2.4 K/mm3 (1.2-3.4); LYMPH % 17.2 % (20.0-51.0); MEAN CELL VOLUME 87 fl (80.0-100.0); MEAN CORPUSCULAR HEMOGLOBIN 29 pg (27-31); MEAN CORPUSCULAR HGB CONC 33 g/dl (33.0-37.0); MEAN PLATELET VOLUME 10.8 fl (7.4-10.4); MONO # 1.2 K/mm3 (0.1-0.6); MONO % 8.5 % (1.7-9.3); PLATELET COUNT 233 K/mm3 (130-400); REDCELL DISTRIBUTION WIDTH-CV 13.2 % (11.5-14.5)
[2023-12-08] MEDS ORDERED: Ketorolac 15 MG/ML VIAL IV ONE (02:00)
[2023-12-08 02:01] LABS: PH 6.5 (5.0-8.5); URINE APPEARANCE CLEAR (CLEAR/HAZY); URINE BLOOD 2+ (NEGATIVE); URINE COLOR YELLOW (YELLOW); URINE GLUCOSE NEGATIVE (NEGATIVE); URINE KETONE NEGATIVE (NEGATIVE); URINE NITRATE NEGATIVE (NEGATIVE); URINE PROTEIN(semi-quant) NEGATIVE (NEGATIVE); URINE UROBILINOGEN 0.2 E.U/dL (0.2-1.0)
[2023-12-08 02:13] LABS: ALBUMIN 3.9 g/dL (3.5-5.0); BILIRUBIN,TOTAL 0.4 mg/dL (0.2-1.2); CALCIUM 9.3 mg/dL (8.4-10.2); CREATININE, serum 0.77 mg/dL (0.57-1.11); POTASSIUM 3.7 mEq/L (3.5-4.5); TOTAL PROTEIN 7.2 g/dl (6.2-8.1)
[2023-12-08] MEDS ORDERED: DIFLUCAN150 MG PO (02:18)
[2023-12-08] MEDS ORDERED: CEPHALEXIN500 M1 PO (02:18)
[2023-12-08] MEDS ORDERED: cefTRIAXone 1 G in Water For Injection,Sterile 10 ML IV ONE (02:30)
[2023-12-08] MEDS ORDERED: Morphine 4 MG/ML VIAL IV ONE (02:30)
[2023-12-08 02:53] VITALS: BP 153/88; PULSE 80
== END 2023-12-08 02:57 | disposition home or self-care (01) ==
LOC: COL.ER 01:29
PROVIDERS: Physician Assistant
DX: N20.0 Calculus of kidney (principal); Z88.1 Allergy status to other antibiotic agents
CPT/HCPCS: J0696; J1885; J2270